=== PATIENT | female | born 1985 | race African-American/Black ===

== ENCOUNTER 2016-10-28 02:31 | Emergency (ER) | payer SELFPAY ==
[~2016-10-28] VITALS: Ht 175.3 cm; Wt 114.6 kg
[~2016-10-28 02:31] MED LIST: BACTRIM DS1 TAB PO; CIPROFLOXACN500 MG PO; CORTISPORIN OP7.5 ML OP; DOCUSATE SODIUM1 TAB PO; FERR SULFATE325 MG PO; KEFLEX500 M1 PO; KEFLEX500 MG PO; LORTAB 5 OR; LORTAB5 PO; MACRODANTIN100 MG PO; MAXITROL0.1 % OP; METRONIDAZOL500 MG PO; NAPROSYN500 MG PO; NO; NO CURRENT MEDS; NORCO1 TA2 PO; PRE-NATAL PO; PRILOSEC40 MG PO; PROTONIX40 MG PO; TRAMADOL HCL50 MG PO; ULTRAM50 M1 PO; ZOFRAN ODT8 MG PO; ZPAK PO
[2016-10-28 03:02] LABS: HEMATOCRIT 31.6 % (37.0-47.0); HEMOGLOBIN 9.9 g/dl (12.0-16.0); IMMATURE GRANULOCYTES 0.2 % (0.0-1.0); MEAN CELL VOLUME 80.8 fL CALC (80.0-100.0); MEAN CORPUSCULAR HGB 25.3 pG CALC (26.0-32.0); MEAN CORPUSCULAR HGB CONC 31.3 g/L CALC (32.0-36.0); NEUT# 4.32 thou/uL (2.00-7.15); RED BLOOD COUNT 3.91 mill/uL (4.20-5.60); RED CELL DISTRI WIDTH 14.9 % (11.5-15.5)
[2016-10-28 03:17] LABS: ALBUMIN 3.9 g/dL (3.2-5.0); ALKALINE PHOSPHATASE 122 u/l (38-126); ANION GAP 15 (6-22 (CALC)); BILIRUBIN, TOTAL 0.2 mg/dL (0.0-1.4); BUN 8 mg/dL (7-17); BUN/CREATININE RATIO 14 (12-20 (CALC)); CARBON DIOXIDE 20 mmol/l (22-30); CHLORIDE 108 mmol/l (95-108); CREATININE 0.6 mg/dL (0.5-1.0); ETHYL ALCOHOL 0 mg/dl (0-30); GFR > 60 ML/MIN (>=60 (CALC)); GFR FOR AFR.AMER. > 60 ML/MIN (>=60 (CALC)); GLUCOSE 96 mg/dL (65-105); POTASSIUM 3.8 mmol/l (3.5-5.1); SGOT/AST 18 u/l (14-36); SGPT/ALT 25 u/l (9-52); SODIUM 139 mmol/l (137-146); TOTAL PROTEIN 7.8 g/dL (6.3-8.2)
[2016-10-28 03:28] LABS: MYOGLOBIN 21 ng/mL (0 - 62)
[2016-10-28 03:44] LABS: URINE BILIRUBIN - DIPSTICK NEGATIVE (NEGATIVE); URINE BLOOD DIPSTICK NEGATIVE (NEGATIVE); URINE CLARITY SLIGHT CLOUDY; URINE COLOR YELLOW; URINE GLUCOSE - DIPSTICK NEGATIVE (NEGATIVE); URINE KETONE NEGATIVE (NEGATIVE); URINE LEUK ESTERASE NEGATIVE (NEGATIVE); URINE NITRITE - DIPSTICK NEGATIVE (Negative); URINE PH 5.5 (4.5-8.0); URINE PROTEIN - DIPSTICK NEGATIVE (NEG-TRACE); URINE UROBILINOGEN - DIPSTICK 0.2 E.U./dL (0.2)
[2016-10-28 03:48] LABS: BARBITURATES NEGATIVE (NEGATIVE); COCAINE NEGATIVE (NEGATIVE); METHADONE NEGATIVE (NEGATIVE); OXCYCODONE NEGATIVE (NEGATIVE); TETRAHYDROCANNABIONOL NEGATIVE (NEGATIVE); TRICYLIC ANTIDEPRESSANTS NEGATIVE (NEGATIVE)
[2016-10-28 03:55] VITALS: BP 133/72
== END 2016-10-28 04:03 | disposition home or self-care (01) | DRG 93 ==
LOC: ED 02:31
PROVIDERS: Emergency Medicine
DX: R20.2 Paresthesia of skin (principal); F17.210 Nicotine dependence, cigarettes, uncomplicated; K21.9 Gastro-esophageal reflux disease without esophagitis; H53.8 Other visual disturbances

== ENCOUNTER 2016-12-25 18:42 | Emergency (ER) | payer SELFPAY ==
[~2016-12-25] VITALS: Ht 175.3 cm; Wt 116.3 kg
[2016-12-25 19:51] LABS: HEMATOCRIT 30.3 % (37.0-47.0); HEMOGLOBIN 9.5 g/dl (12.0-16.0); IMMATURE GRANULOCYTES 0.3 % (0.0-1.0); MEAN CELL VOLUME 76.5 fL CALC (80.0-100.0); MEAN CORPUSCULAR HGB CONC 31.4 g/L CALC (32.0-36.0); NEUT# 8.24 thou/uL (2.00-7.15); RED BLOOD COUNT 3.96 mill/uL (4.20-5.60); RED CELL DISTRI WIDTH 17.2 % (11.5-15.5)
[2016-12-25 20:07] LABS: ALBUMIN 3.9 g/dL (3.2-5.0); ALKALINE PHOSPHATASE 123 u/l (38-126); ANION GAP 14 (6-22 (CALC)); BILIRUBIN, TOTAL 0.2 mg/dL (0.0-1.4); BUN 10 mg/dL (7-17); BUN/CREATININE RATIO 14 (12-20 (CALC)); CALCIUM 10.4 mg/dL (8.4-10.2); CARBON DIOXIDE 24 mmol/l (22-30); CHLORIDE 109 mmol/l (95-108); CREATININE 0.7 mg/dL (0.5-1.0); GFR > 60 ML/MIN (>=60 (CALC)); GFR FOR AFR.AMER. > 60 ML/MIN (>=60 (CALC)); GLUCOSE 111 mg/dL (65-105); POTASSIUM 3.7 mmol/l (3.5-5.1); SGOT/AST 16 u/l (14-36); SGPT/ALT 31 u/l (9-52); SODIUM 143 mmol/l (137-146); TOTAL PROTEIN 7.2 g/dL (6.3-8.2)
[2016-12-25 20:08] LABS: URINE BILIRUBIN - DIPSTICK NEGATIVE (NEGATIVE); URINE BLOOD DIPSTICK NEGATIVE (NEGATIVE); URINE CLARITY CLEAR; URINE COLOR YELLOW; URINE GLUCOSE - DIPSTICK NEGATIVE (NEGATIVE); URINE KETONE NEGATIVE (NEGATIVE); URINE LEUK ESTERASE NEGATIVE (NEGATIVE); URINE NITRITE - DIPSTICK NEGATIVE (Negative); URINE PH 5.5 (4.5-8.0); URINE PROTEIN - DIPSTICK NEGATIVE (NEG-TRACE); URINE SPECIFIC GRAVITY >=1.030
[2016-12-25] MEDS ORDERED: ULTRAM50 M1 PO (20:21)
[2016-12-25] MEDS ORDERED: BACTRIM DS1 TAB PO (20:21)
[2016-12-25 20:25] VITALS: BP 131/75
== END 2016-12-25 20:25 | disposition home or self-care (01) | DRG 601 ==
LOC: ED 18:42
PROVIDERS: Emergency Medicine
DX: N61.0 Mastitis without abscess (principal); F17.210 Nicotine dependence, cigarettes, uncomplicated; N63 Unspecified lump in breast; K21.9 Gastro-esophageal reflux disease without esophagitis

== ENCOUNTER 2016-12-29 05:15 | Inpatient (IN) | payer SELFPAY ==
[~2016-12-29] VITALS: Ht 175.3 cm; Wt 115.4 kg
[2016-12-29 06:43] LABS: HEMATOCRIT 31.2 % (37.0-47.0); HEMOGLOBIN 9.8 g/dl (12.0-16.0); IMMATURE GRANULOCYTES 0.4 % (0.0-1.0); MEAN CELL VOLUME 77.4 fL CALC (80.0-100.0); MEAN CORPUSCULAR HGB 24.3 pG CALC (26.0-32.0); MEAN CORPUSCULAR HGB CONC 31.4 g/L CALC (32.0-36.0); NEUT# 7.75 thou/uL (2.00-7.15); RED BLOOD COUNT 4.03 mill/uL (4.20-5.60); RED CELL DISTRI WIDTH 17.2 % (11.5-15.5)
[2016-12-29 07:10] LABS: ALBUMIN 3.9 g/dL (3.2-5.0); ALKALINE PHOSPHATASE 140 u/l (38-126); ANION GAP 16 (6-22 (CALC)); BILIRUBIN, TOTAL 0.5 mg/dL (0.0-1.4); BUN 11 mg/dL (7-17); BUN/CREATININE RATIO 15 (12-20 (CALC)); CARBON DIOXIDE 22 mmol/l (22-30); CHLORIDE 107 mmol/l (95-108); CREATININE 0.7 mg/dL (0.5-1.0); GFR > 60 ML/MIN (>=60 (CALC)); GFR FOR AFR.AMER. > 60 ML/MIN (>=60 (CALC)); GLUCOSE 97 mg/dL (65-105); POTASSIUM 4.5 mmol/l (3.5-5.1); SGOT/AST 17 u/l (14-36); SGPT/ALT 27 u/l (9-52); SODIUM 140 mmol/l (137-146); TOTAL PROTEIN 7.3 g/dL (6.3-8.2)
[2016-12-29 07:32] LABS: URINE BILIRUBIN - DIPSTICK NEGATIVE (NEGATIVE); URINE BLOOD DIPSTICK NEGATIVE (NEGATIVE); URINE CLARITY SLIGHT CLOUDY; URINE COLOR YELLOW; URINE GLUCOSE - DIPSTICK NEGATIVE (NEGATIVE); URINE KETONE NEGATIVE (NEGATIVE); URINE LEUK ESTERASE NEGATIVE (NEGATIVE); URINE NITRITE - DIPSTICK NEGATIVE (Negative); URINE PH 5.5 (4.5-8.0); URINE PROTEIN - DIPSTICK NEGATIVE (NEG-TRACE); URINE SPECIFIC GRAVITY >=1.030; URINE UROBILINOGEN - DIPSTICK 0.2 E.U./dL (0.2)
[2016-12-29 07:36] LABS: URINE SQUAMOUS EPITHELIAL CELL MODERATE EPI/hpf (0-FEW); URINE WBC 0-2 WBC/hpf (0-5)
[2016-12-29 11:00] VITALS: BP 121/53
[2016-12-29 15:34] VITALS: BP 126/72
[2016-12-29 19:00] VITALS: BP 118/64
[2016-12-30 04:35] VITALS: BP 107/65
[2016-12-30 06:05] LABS: HEMATOCRIT 31.1 % (37.0-47.0); HEMOGLOBIN 9.5 g/dl (12.0-16.0); IMMATURE GRANULOCYTES 0.5 % (0.0-1.0); MEAN CELL VOLUME 77.9 fL CALC (80.0-100.0); MEAN CORPUSCULAR HGB 23.8 pG CALC (26.0-32.0); MEAN CORPUSCULAR HGB CONC 30.5 g/L CALC (32.0-36.0); NEUT# 5.14 thou/uL (2.00-7.15); RED BLOOD COUNT 3.99 mill/uL (4.20-5.60); RED CELL DISTRI WIDTH 17.2 % (11.5-15.5)
[2016-12-30 06:41] LABS: ANION GAP 13 (6-22 (CALC)); BUN 11 mg/dL (7-17); BUN/CREATININE RATIO 19 (12-20 (CALC)); CALCIUM 10.1 mg/dL (8.4-10.2); CARBON DIOXIDE 23 mmol/l (22-30); CHLORIDE 108 mmol/l (95-108); CREATININE 0.6 mg/dL (0.5-1.0); GFR > 60 ML/MIN (>=60 (CALC)); GFR FOR AFR.AMER. > 60 ML/MIN (>=60 (CALC)); GLUCOSE 99 mg/dL (65-105); SODIUM 139 mmol/l (137-146)
[2016-12-30 08:37] VITALS: BP 124/57
[2016-12-30] MEDS ORDERED: LEVAQUIN750 MG PO (11:25)
[2016-12-30] MEDS ORDERED: METRONIDAZOL500 MG PO (11:26)
== END 2016-12-30 13:22 | disposition home or self-care (01) | DRG 585 ==
LOC: ENPENDDIS → ED 05:15 → ED-I 09:45 → ED 10:03 → MS2 10:04
PROVIDERS: Emergency Medicine; ADMIT Internal Medicine; ATTEND Internal Medicine
PROC: 0H9T0ZX Drainage of Right Breast, Open Approach, Diagnostic (ICD-10-PCS; principal; 2016-12-29)
DX: N61.1 Abscess of the breast and nipple (principal); F17.210 Nicotine dependence, cigarettes, uncomplicated; O90.0 Disruption of cesarean delivery wound; K21.9 Gastro-esophageal reflux disease without esophagitis; Z88.0 Allergy status to penicillin
CPT/HCPCS: J1650; J3370

== ENCOUNTER 2017-06-14 20:56 | Emergency (ER) | payer SELFPAY ==
[~2017-06-14] VITALS: Ht 175.3 cm; Wt 118.4 kg
[~2017-06-14 20:56] MED LIST changes: +LEVAQUIN750 MG PO
[2017-06-14 21:50] LABS: HEMATOCRIT 34.8 % (37.0-47.0); IMMATURE GRANULOCYTES 0.3 % (0.0-1.0); MEAN CELL VOLUME 80.9 fL CALC (80.0-100.0); MEAN CORPUSCULAR HGB 25.6 pG CALC (26.0-32.0); MEAN CORPUSCULAR HGB CONC 31.6 g/L CALC (32.0-36.0); NEUT# 4.72 thou/uL (2.00-7.15); RED BLOOD COUNT 4.3 mill/uL (4.20-5.60)
[2017-06-14 21:56] LABS: BARBITURATES NEGATIVE (NEGATIVE); COCAINE NEGATIVE (NEGATIVE); METHADONE NEGATIVE (NEGATIVE); OXCYCODONE NEGATIVE (NEGATIVE); TETRAHYDROCANNABIONOL NEGATIVE (NEGATIVE); TRICYLIC ANTIDEPRESSANTS NEGATIVE (NEGATIVE)
[2017-06-14 22:03] LABS: ALBUMIN 4.2 g/dL (3.2-5.0); ALKALINE PHOSPHATASE 129 u/l (38-126); ANION GAP 13 (6-22 (CALC)); BILIRUBIN, TOTAL 0.2 mg/dL (0.0-1.4); BUN 14 mg/dL (7-17); BUN/CREATININE RATIO 20 (12-20 (CALC)); CALCIUM 10.2 mg/dL (8.4-10.2); CARBON DIOXIDE 25 mmol/l (22-30); CHLORIDE 109 mmol/l (95-108); CREATININE 0.7 mg/dL (0.5-1.0); GFR > 60 ML/MIN (>=60 (CALC)); GFR FOR AFR.AMER. > 60 ML/MIN (>=60 (CALC)); GLUCOSE 127 mg/dL (65-105); POTASSIUM 4.4 mmol/l (3.5-5.1); SGOT/AST 24 u/l (14-36); SGPT/ALT 30 u/l (9-52); SODIUM 142 mmol/l (137-146); TOTAL PROTEIN 7.6 g/dL (6.3-8.2)
[2017-06-14 22:33] VITALS: BP 102/56
== END 2017-06-14 22:36 | disposition home or self-care (01) | DRG 103 ==
LOC: ED 20:56
PROVIDERS: Emergency Medicine
DX: R51 Headache (principal); F17.200 Nicotine dependence, unspecified, uncomplicated; R07.89 Other chest pain; R20.0 Anesthesia of skin; K21.9 Gastro-esophageal reflux disease without esophagitis

== ENCOUNTER 2017-11-20 20:43 | Emergency (ER) | payer SELFPAY ==
[~2017-11-20] VITALS: Ht 175.3 cm; Wt 121.0 kg
[2017-11-20] MEDS ORDERED: BACTRIM DS1 TAB PO (21:08)
[2017-11-20 21:45] VITALS: BP 126/84
== END 2017-11-20 21:47 | disposition home or self-care (01) | DRG 603 ==
LOC: ED 20:43
DX: L02.412 Cutaneous abscess of left axilla (principal); L02.411 Cutaneous abscess of right axilla

== ENCOUNTER 2018-03-24 19:34 | Emergency (ER) | payer SELFPAY ==
[~2018-03-24] VITALS: Ht 175.3 cm; Wt 118.0 kg
[2018-03-24 20:33] LABS: URINE BILIRUBIN - DIPSTICK NEGATIVE (NEGATIVE); URINE BLOOD DIPSTICK NEGATIVE (NEGATIVE); URINE COLOR YELLOW; URINE GLUCOSE - DIPSTICK NEGATIVE (NEGATIVE); URINE KETONE NEGATIVE (NEGATIVE); URINE LEUK ESTERASE TRACE (NEGATIVE); URINE NITRITE - DIPSTICK NEGATIVE (Negative); URINE PH 5.5 (4.5-8.0); URINE PROTEIN - DIPSTICK NEGATIVE (NEG-TRACE); URINE SPECIFIC GRAVITY >=1.030
[2018-03-24 20:34] LABS: HEMATOCRIT 38.1 % (37.0-47.0); HEMOGLOBIN 11.9 g/dl (12.0-16.0); IMMATURE GRANULOCYTES 0.4 % (0.0-5.0); MEAN CELL VOLUME 84.7 fL CALC (80.0-100.0); MEAN CORPUSCULAR HGB 26.4 pG CALC (26.0-32.0); MEAN CORPUSCULAR HGB CONC 31.2 g/L CALC (32.0-36.0); NEUT# 4.25 thou/uL (2.00-7.15); RED BLOOD COUNT 4.5 mill/uL (4.20-5.60); RED CELL DISTRI WIDTH 15.7 % (11.5-15.5)
[2018-03-24 20:34] LABS: URINE CLARITY CLEAR
[2018-03-24 20:51] LABS: ALBUMIN 3.9 g/dL (3.2-5.0); ALKALINE PHOSPHATASE 130 u/l (38-126); ANION GAP 12 (6-22 (CALC)); BILIRUBIN, TOTAL 0.2 mg/dL (0.0-1.4); BUN 15 mg/dL (7-17); BUN/CREATININE RATIO 22 (12-20 (CALC)); CARBON DIOXIDE 26 mmol/l (22-30); CHLORIDE 107 mmol/l (95-108); CREATININE 0.7 mg/dL (0.5-1.0); GFR > 60 ML/MIN (>=60 (CALC)); GFR FOR AFR.AMER. > 60 ML/MIN (>=60 (CALC)); POTASSIUM 4.2 mmol/l (3.5-5.1); SGOT/AST 20 u/l (14-36); SGPT/ALT 24 u/l (9-52); SODIUM 141 mmol/l (137-146); TOTAL PROTEIN 7.7 g/dL (6.3-8.2)
[2018-03-24 21:50] VITALS: BP 132/77
== END 2018-03-24 21:55 | disposition home or self-care (01) | DRG 103 ==
LOC: ED 19:34
PROVIDERS: Emergency Medicine
DX: R51 Headache (principal); F17.210 Nicotine dependence, cigarettes, uncomplicated

== ENCOUNTER 2018-06-06 18:44 | Emergency (ER) | payer SELFPAY ==
[~2018-06-06] VITALS: Ht 175.3 cm; Wt 260.0 kg
[2018-06-06] MEDS ORDERED: BIAXIN500 MG PO (19:24)
[2018-06-06 19:49] VITALS: BP 123/78
== END 2018-06-06 19:49 | disposition home or self-care (01) | DRG 153 ==
LOC: ED 18:44
DX: J01.90 Acute sinusitis, unspecified (principal); R09.81 Nasal congestion; R51 Headache; R50.9 Fever, unspecified; R06.02 Shortness of breath; F17.200 Nicotine dependence, unspecified, uncomplicated; R42 Dizziness and giddiness

== ENCOUNTER 2018-08-11 17:35 | Emergency (ER) | payer SELFPAY ==
[~2018-08-11] VITALS: Ht 175.3 cm; Wt 111.4 kg
[~2018-08-11 17:35] MED LIST changes: +BIAXIN500 MG PO
[2018-08-11] MEDS ORDERED: KEFLEX500 M1 PO (18:45)
[2018-08-11] MEDS ORDERED: BACTRIM DS1 TAB PO (18:45)
[2018-08-11 18:49] VITALS: BP 121/73
== END 2018-08-11 18:53 | disposition home or self-care (01) | DRG 603 ==
LOC: ED 17:35
DX: L02.411 Cutaneous abscess of right axilla (principal); F17.290 Nicotine dependence, other tobacco product, uncomplicated

== ENCOUNTER → 2018-09-17 | Outpatient (REF) ==
[~2018-09-17] MED LIST changes: +FIORICET PO
== END | disposition home or self-care (01) | DRG 951 ==
LOC: PAGE 15:00
PROVIDERS: ATTEND Nurse Practitioner Family
DX: Z02.9 Encounter for administrative examinations, unspecified (principal)

== ENCOUNTER 2018-09-27 09:15 | Emergency (ER) | payer SELFPAY ==
[~2018-09-27] VITALS: Ht 175.3 cm; Wt 122.7 kg
[~2018-09-27 09:15] MED LIST changes: -FIORICET PO
[2018-09-27] MEDS ORDERED: FIORICET PO (11:01)
[2018-09-27 12:00] VITALS: BP 105/55
== END 2018-09-27 12:05 | disposition home or self-care (01) | DRG 103 ==
LOC: ED 09:15
DX: G43.909 Migraine, unspecified, not intractable, without status migrainosus (principal); E66.9 Obesity, unspecified; F17.290 Nicotine dependence, other tobacco product, uncomplicated

== ENCOUNTER 2019-10-03 | Emergency (ER) | payer BC ==
[~2019-10-03] MED LIST changes: +FIORICET PO
[2019-10-03 13:03] LABS: HEMATOCRIT 36.1 % (37.0-47.0); HEMOGLOBIN 11.4 g/dl (12.0-16.0); IMMATURE GRANULOCYTES 0.1 % (0.0-5.0); MEAN CELL VOLUME 83.6 fL CALC (80.0-100.0); MEAN CORPUSCULAR HGB 26.4 pG CALC (26.0-32.0); MEAN CORPUSCULAR HGB CONC 31.6 g/dL CAL (32.0-36.0); NEUT# 3.68 thou/uL (2.00-7.15); RED BLOOD COUNT 4.32 mill/uL (4.20-5.60); RED CELL DISTRI WIDTH 15.5 % (11.5-15.5)
[2019-10-03 13:15] LABS: ALKALINE PHOSPHATASE 124 u/l (38-126); ANION GAP 9 (6-22 (CALC)); BUN 11 mg/dL (7-17); BUN/CREATININE RATIO 18 (12-20 (CALC)); CARBON DIOXIDE 27 mmol/l (22-30); CHLORIDE 106 mmol/l (95-108); CREATININE 0.6 mg/dL (0.5-1.0); GFR > 60 ML/MIN (>=60 (CALC)); GFR FOR AFR.AMER. > 60 ML/MIN (>=60 (CALC)); SGOT/AST 29 u/l (14-36); SODIUM 139 mmol/l (137-146); TOTAL PROTEIN 7.8 g/dL (6.3-8.2)
[2019-10-03 13:16] LABS: BILIRUBIN, TOTAL 0.5 mg/dL (0.0-1.4)
[2019-10-03 13:52] LABS: URINE BILIRUBIN - DIPSTICK NEGATIVE (NEGATIVE); URINE BLOOD DIPSTICK NEGATIVE (NEGATIVE); URINE COLOR YELLOW; URINE GLUCOSE - DIPSTICK NEGATIVE (NEGATIVE); URINE KETONE NEGATIVE (NEGATIVE); URINE LEUK ESTERASE NEGATIVE (NEGATIVE); URINE NITRITE - DIPSTICK NEGATIVE (Negative); URINE PH 8.5 (4.5-8.0); URINE PROTEIN - DIPSTICK NEGATIVE (NEG-TRACE); URINE SPECIFIC GRAVITY 1.015; URINE UROBILINOGEN - DIPSTICK 0.2 E.U./dL (0.2)
[2019-10-03] MEDS ORDERED: CLEOCIN300 MG PO (14:15)
[2019-10-03] MEDS ORDERED: NAPROXEN500 MG PO (14:15)
--- NOTE | 2019-10-07 10:05 | NUR ---
Notified patient of Covid results (Negative). Advised pt to follow up with PCP or come to ED for urgent needs. Advised pt to continue to practice Covid prevention such as handwashing and avoiding contact with others. Patient verbalized understanding.
== END 2019-10-03 14:45 | disposition home or self-care (01) | DRG 313 ==
PROVIDERS: Emergency Medicine
DX: R07.89 Other chest pain (principal); J02.0 Streptococcal pharyngitis; F17.200 Nicotine dependence, unspecified, uncomplicated; Z20.828 Contact with and (suspected) exposure to other viral communicable diseases

== ENCOUNTER 2021-02-22 14:47 | Emergency (ER) | payer SELFPAY ==
[~2021-02-22] VITALS: Ht 175.3 cm; Wt 115.0 kg
[~2021-02-22 14:47] MED LIST changes: +CLEOCIN300 MG PO; +NAPROXEN500 MG PO
[2021-02-22 17:05] LABS: HEMATOCRIT 40.4 % (37.0-47.0); HEMOGLOBIN 12.5 g/dl (12.0-16.0); IMMATURE GRANULOCYTES 0.1 % (0.0-5.0); MEAN CORPUSCULAR HGB 27.6 pG CALC (26.0-32.0); MEAN CORPUSCULAR HGB CONC 30.9 g/dL CAL (32.0-36.0); NEUT# 5.14 thou/uL (2.00-7.15); RED BLOOD COUNT 4.53 mill/uL (4.20-5.60); RED CELL DISTRI WIDTH 16.6 % (11.5-15.5)
[2021-02-22 17:06] LABS: MEAN CELL VOLUME 89.2 fL CALC (80.0-100.0); URINE BILIRUBIN - DIPSTICK NEGATIVE (NEGATIVE); URINE BLOOD DIPSTICK TRACE-INTACT (NEGATIVE); URINE COLOR YELLOW; URINE GLUCOSE - DIPSTICK NEGATIVE (NEGATIVE); URINE KETONE NEGATIVE (NEGATIVE); URINE LEUK ESTERASE NEGATIVE (NEGATIVE); URINE PROTEIN - DIPSTICK NEGATIVE (NEG-TRACE); URINE SPECIFIC GRAVITY >=1.030; URINE UROBILINOGEN - DIPSTICK 0.2 E.U./dL (0.2)
[2021-02-22 17:10] LABS: URINE NITRITE - DIPSTICK NEGATIVE (Negative)
[2021-02-22 17:17] LABS: ALBUMIN 4.2 g/dL (3.2-5.0); ALKALINE PHOSPHATASE 141 u/l (38-126); ANION GAP 12 (6-22 (CALC)); BUN 9 mg/dL (7-17); BUN/CREATININE RATIO 14 (12-20 (CALC)); CARBON DIOXIDE 25 mmol/l (22-30); CHLORIDE 108 mmol/l (95-108); CREATININE 0.6 mg/dL (0.5-1.0); GFR > 60 ML/MIN (>=60 (CALC)); GFR FOR AFR.AMER. > 60 ML/MIN (>=60 (CALC)); LIPASE 105 u/l (23-300); POTASSIUM 4.4 mmol/l (3.5-5.1); SGOT/AST 27 u/l (14-36); SODIUM 141 mmol/l (137-146); TOTAL PROTEIN 7.9 g/dL (6.3-8.2)
[2021-02-22 17:20] LABS: BILIRUBIN, TOTAL 0.2 mg/dL (0.0-1.4)
[2021-02-22] MEDS ORDERED: ONDANSETRON4 MG PO (17:45)
[2021-02-22 18:19] VITALS: BP 118/51
== END 2021-02-22 18:19 | disposition home or self-care (01) | DRG 392 ==
LOC: ED 14:47
PROVIDERS: Family Medicine
DX: R11.2 Nausea with vomiting, unspecified (principal); R19.7 Diarrhea, unspecified; E66.9 Obesity, unspecified; F17.200 Nicotine dependence, unspecified, uncomplicated; Z20.822 Contact with and (suspected) exposure to COVID-19

== ENCOUNTER 2021-02-26 09:55 | Emergency (ER) | payer OTHER ==
[~2021-02-26] VITALS: Ht 175.3 cm; Wt 119.0 kg
[~2021-02-26 09:55] MED LIST changes: +ONDANSETRON4 MG PO
[2021-02-26 12:20] VITALS: BP 112/64
== END 2021-02-26 12:20 | disposition home or self-care (01) | DRG 179 ==
LOC: ED 09:55
DX: U07.1 COVID-19 (principal); E66.9 Obesity, unspecified; F17.200 Nicotine dependence, unspecified, uncomplicated

== ENCOUNTER 2022-09-12 18:10 | Emergency (ER) | payer OTHER ==
[~2022-09-12] VITALS: Ht 175.3 cm; Wt 100.0 kg
[2022-09-12 18:23] VITALS: BP 129/83
[2022-09-12 18:30] VITALS: BP 134/82
[2022-09-12 18:46] VITALS: BP 100/76
[2022-09-12] MEDS ORDERED: BACTRIM DS1 TAB PO (18:48)
[2022-09-12] MEDS ORDERED: CEPHALEXIN500 M1 PO (18:48)
[2022-09-12 19:01] VITALS: BP 126/69
[2022-09-12 19:05] VITALS: BP 126/69
== END 2022-09-12 19:26 | disposition home or self-care (01) | DRG 601 ==
LOC: ED 18:10
PROC: 0H9T3ZZ Drainage of Right Breast, Percutaneous Approach (ICD-10-PCS; principal; 2022-09-12)
DX: N61.1 Abscess of the breast and nipple (principal); E66.9 Obesity, unspecified; F17.200 Nicotine dependence, unspecified, uncomplicated

== ENCOUNTER 2022-09-13 19:06 | Emergency (ER) | payer OTHER ==
[~2022-09-13] VITALS: Ht 175.3 cm; Wt 105.6 kg
[~2022-09-13 19:06] MED LIST changes: +CEPHALEXIN500 M1 PO
[2022-09-13 19:14] VITALS: BP 149/99
[2022-09-13 19:51] VITALS: BP 149/99
== END 2022-09-13 19:51 | disposition home or self-care (01) | DRG 951 ==
LOC: ED 19:06
DX: Z48.00 Encounter for change or removal of nonsurgical wound dressing (principal); N61.1 Abscess of the breast and nipple